=== PATIENT | female | born 1995 | race Caucasian/White ===

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

== ENCOUNTER 2017-08-27 14:02 | Emergency (ER) | payer OTHER ==
[2017-08-27 14:44] VITALS: BP 100/71
--- NOTE | 2017-08-27 15:33 | UC ---
Throat Pain/Nasal Jass HPI - History of Current Complaint Chief Complaint: UCRespiratory Stated Complaint: SINUS PAIN Time Seen by Provider: 08/27/17 15:16 Hx Obtained From: Patient Hx Last Menstrual Period: iud Onset/Duration: Gradual Onset - started last week with fatigue, body aches, fever. now has ST and facial pain/pressure. aches behid eyes, blowing out yellow mucous, also coughing Pain Intensity: 4 Cough: Nonproductive Associated Signs & Symptoms: Positive: Sinus Discomfort, Nasal Discharge - Allergies/Home Medications Allergies/Adverse Reactions: Allergies Allergy/AdvReac Type Severity Reaction Status Date / Time No Known Allergies Allergy Verified 08/27/17 14:44 PMH/Surg Hx/FS Hx/Imm Hx Previously Healthy: Yes - Surgical History Surgical History: None - Family History Known Family History: Positive: None Negative: Hypertension, Diabetes - Social History Occupation: Student Lives: With Family Alcohol Use: Occasionally Substance Use Type: None Smoking Status (MU): Never Smoked Tobacco Review of Systems Constitutional: Fever, Fatigue Skin: Negative ENT: Sore Throat, Nasal Discharge, Sinus Congestion, Sinus Pain/Tenderness Respiratory: Cough Cardiovascular: Negative Neurological: Negative Psychological: Negative All Other Systems Reviewed And Are Negative: Yes Physical Exam Triage Information Reviewed: Yes Appearance: Well-Appearing, No Pain Distress, Well-Nourished Vital Signs: Initial Vital Signs Temp 99.3 F 08/27/17 14:40 Pulse 105 08/27/17 14:40 Resp 18 08/27/17 14:40 BP 100/71 08/27/17 14:40 Pulse Ox 100 08/27/17 14:40 Vital Signs Reviewed: Yes ENT: Positive: Pharynx normal, Nasal congestion, Nasal drainage, TMs normal, Sinus tenderness Throat Pain/Nasal Course/Dx - Differential Dx/Diagnosis Differential Diagnosis/HQI/PQRI: Influenza, Pharyngitis, Sinusitis, Tonsillitis , URI Provider Diagnoses: sinusitis Discharge - Sign-Out/Discharge Documenting (check all that apply): Discharge - Discharge Plan Condition: Stable Disposition: HOME Prescriptions: Cefdinir cap (NF) [Cefdinir 300 MG cap (NF)] 300 mg PO BID #20 cap Referrals: No Primary Care Phys,NOPCP [Primary Care Provider] - Additional Instructions: drink plenty of fluids ibuprofen 600mg every 6 hours as needed for fever and pain take antibiotic as directed See Rylee if no better in 3 days - Billing Disposition and Condition Condition: STABLE Disposition: HOME
== END 2017-08-27 15:45 | disposition home or self-care (01) ==
LOC: UCEAST 14:02
DX: J32.9 Chronic sinusitis, unspecified (principal)
CPT/HCPCS: 99212; G0463

== ENCOUNTER 2018-09-23 09:12 | Emergency (ER) | payer OTHER ==
[2018-09-23 09:27] VITALS: BP 108/66
--- NOTE | 2018-09-23 10:04 | UC ---
General HPI - HPI Summary HPI Summary: Pleasant 22 yo female c/o cough, sob, fever. Sx started approx 1 month ago. Seen in [facility] 09/11/18, dx'd with bronchitis, started amoxil / prednisone, a little better. But sx recurred approx 1-2 weeks ago. Coughs hard with deep breath, feels that cough is "deep." + fever subj. No chills. + left ear fullness, mild sore throat. Appetite ok, po fluids ok. No GI issues. No issues. No p /d/w. No rash. Pt is a college student. - History of Current Complaint Chief Complaint: UCRespiratory Stated Complaint: FEVER/COUGH Time Seen by Provider: 09/23/18 10:03 Hx Obtained From: Patient Hx Last Menstrual Period: iud Pain Intensity: 7 - Allergy/Home Medications Allergies/Adverse Reactions: Allergies Allergy/AdvReac Type Severity Reaction Status Date / Time No Known Allergies Allergy Verified 09/23/18 09:26 PMH/Surg Hx/FS Hx/Imm Hx Previously Healthy: Yes - see hpi - Surgical History Surgical History: None - Family History Known Family History: Positive: None, Other - denies autoimmune fam hx Negative: Hypertension, Diabetes - Social History Alcohol Use: Occasionally Substance Use Type: None Smoking Status (MU): Never Smoked Tobacco Review of Systems All Other Systems Reviewed And Are Negative: Yes Constitutional: Positive: Other - see hpi Skin: Positive: Other - see hpi Eyes: Positive: Other - see hpi ENT: Positive: Other - see hpi Respiratory: Positive: Other - see hpi Cardiovascular: Positive: Other - see hpi Gastrointestinal: Positive: Other - see hpi Genitourinary: Positive: Other - see hpi Motor: Positive: Other - see hpi Neurovascular: Positive: Other - see hpi Musculoskeletal: Positive: Other: - see hpi Neurological: Positive: Other - see hpi Psychological: Positive: Negative Is Patient Immunocompromised?: No Physical Exam Triage Information Reviewed: Yes Appearance: Well-Appearing, Well-Nourished Vital Signs: Initial Vital Signs Temp 99.1 F 09/23/18 09:20 Pulse 105 09/23/18 09:20 Resp 18 09/23/18 09:20 BP 108/66 09/23/18 09:20 Pulse Ox 99 09/23/18 09:20 Vital Signs Reviewed: Yes Eye Exam: Normal ENT: Positive: Pharyngeal erythema, TM dull - tm dull, patel left post pharynx mild red, no sores / exudates Neck exam: Normal Neck: Positive: Supple, Other: - no adenopathy appreciated, but tender ant cervical chain right Respiratory Exam: Other - BS equal - + rhonchi bilat, + exp wheezes. low threshold for cough. No rtx. Respiratory: Positive: No respiratory distress, No accessory muscle use Cardiovascular Exam: Other - HR 100's Cardiovascular: Positive: No Murmur, Pulses Normal, Brisk Capillary Refill Abdominal Exam: Normal Abdomen Description: Positive: Nontender Bowel Sounds: Positive: Present Musculoskeletal Exam: Normal Neurological Exam: Normal Psychological Exam: Normal Skin Exam: Normal - nondiaphoretic. no visible or reported rash Course/Dx - Course Course Of Treatment: reviewed notes as available from 09/11/18. CXR - reviewed cxr and reviewed report with pt. timoteo x 1. improved, still some wheezing. influ a/b neg pertussis swab sent d/w pt coa /tx plan. Important to f/u with PCP (rylee) early this week. she should go t the ED if worse or new issues. Start macrolide. - Diagnoses Provider Diagnosis: Pneumonia, Bronchospasm Discharge - Sign-Out/Discharge Documenting (check all that apply): Patient Departure All imaging exams completed and their final reports reviewed: Yes - Discharge Plan Condition: Stable Disposition: HOME Prescriptions: Albuterol 2.5MG/3ML (0.083%)* [Ventolin 2.5 MG/3 ML NEB.HUBER*] 2.5 mg INH Q6H # 25 packet Albuterol HFA INHALER* [Ventolin HFA Inhaler*] 1 - 2 puff INH Q4H PRN #1 mdi PRN Reason: Wheezing Azithromycin TAB* [Zithromax TAB (Z-CHARITO) 250 mg #6 tabs] 500 mg PO DAILY #7 tab Benzonatate CAP* [Tessalon 100 MG CAP*] 100 mg PO TID PRN #30 cap PRN Reason: Cough predniSONE TAB* [Deltasone 10 MG TAB*] 10 mg PO DAILY #20 tab Patient Education Materials: Bacterial Pneumonia (ED), Wheezing (ED) Forms: *School Release Referrals: [facility] [Outside] No Primary Care Phys,NOPCP [Primary Care Provider] - Additional Instructions: Follow up with Rylee early this week. Please go to the Emergency Department for worse or new problems. Influenza a/b negative. Pertussis swab pending. - Billing Disposition and Condition Condition: STABLE Disposition: Home
[2018-09-23 10:37] LABS: Influenza A Molecular NEGATIVE (Negative); Influenza B Molecular NEGATIVE (Negative)
[2018-09-23] MEDS ORDERED: Albuterol/Ipratropium NEB.SOL* Albuterol 2.5 MG/Ipratropium 0.5 MG 3 ML INH ONE (10:42)
[2018-09-26 18:51] LABS: Bordetella pertussis PCR Negative
== END 2018-09-23 12:07 | disposition home or self-care (01) ==
LOC: UCEAST 09:12
DX: J18.9 Pneumonia, unspecified organism (principal); J98.01 Acute bronchospasm
CPT/HCPCS: 71046; 87798; 99212; A9270-GY; G0463

== ENCOUNTER 2019-02-02 19:25 | Emergency (ER) | payer OTHER ==
[2019-02-02 19:37] VITALS: BP 110/73
--- NOTE | 2019-02-02 20:22 | UC ---
Throat Pain/Nasal Jass HPI - HPI Summary HPI Summary: 23 y/o female presents to the urgent care c/o sore throat, sinus congestion and yellowish nasal discharge for the past week. Pt reports symptoms worsen yesterday when she developed fever and RT ear pain last night. Pt has been taken Ibuprofen PO and Mucinex PO to alleviate symptoms w/o any improvement. Pain w/ swallowing is 6/10. She noticed this morning her tonsils are enlarge w / mild exudate. Last Ibuprofen taken was this morning. Pt denies SOB, NORRIS, dizziness, chest pain, abdominal pain, N/V/D. - History of Current Complaint Chief Complaint: UCGeneralIllness Stated Complaint: COLD SYMPTOMS Time Seen by Provider: 02/02/19 20:19 Hx Obtained From: Patient Hx Last Menstrual Period: iud Onset/Duration: Gradual Onset, Lasting Weeks - 1 week, Still Present, Worse Since - sinus pain, fever and RT ear pain Severity: Moderate Pain Intensity: 6 - sore throat and ear pain Cough: Nonproductive Associated Signs & Symptoms: Positive: Sinus Discomfort, Nasal Discharge - yellowish, Fever, Other - Rt ear pain. Negative: Dysphagia, Wheezing - Epiglottits Risk Factors Epiglottis Risk Factors: Negative - Allergies/Home Medications Allergies/Adverse Reactions: Allergies Allergy/AdvReac Type Severity Reaction Status Date / Time No Known Allergies Allergy Verified 02/02/19 19:37 PMH/Surg Hx/FS Hx/Imm Hx Previously Healthy: Yes - Pt denies PMHX - Surgical History Surgical History: None - Family History Known Family History: Positive: None - Pt denies FMHX, Other - denies autoimmune fam hx Negative: Hypertension, Diabetes - Social History Occupation: Student Lives: With Family Alcohol Use: Weekly Substance Use Type: None Smoking Status (MU): Current Some Day Smoker Type: eCigarettes - Immunization History Vaccination Up to Date: Yes Review of Systems All Other Systems Reviewed And Are Negative: Yes Constitutional: Positive: Fever, Chills Skin: Positive: Negative Eyes: Positive: Negative ENT: Positive: Sore Throat, Ear Ache - RT ear pain, Nasal Discharge - yellowish , Sinus Congestion, Sinus Pain/Tenderness, Other - moderate PND Respiratory: Positive: Cough - dry Cardiovascular: Positive: Negative Gastrointestinal: Positive: Negative Genitourinary: Positive: Negative Motor: Positive: Negative Neurovascular: Positive: Negative Musculoskeletal: Positive: Negative Neurological: Positive: Negative Psychological: Positive: Negative Is Patient Immunocompromised?: No Physical Exam - Summary Physical Exam Summary: VITAL SIGNS: Reviewed. GENERAL: Patient is a well developed and nourished female who is sitting comfortable in the examining table. Patient is not in any acute respiratory distress. HEAD AND FACE: No signs of trauma. No ecchymosis, hematomas or skull depressions. B/l frontal and maxillary sinus tenderness on percussion. EYES: PERRLA, EOMI x 2, No injected conjunctiva, no nystagmus. No photophobia. EARS: Hearing grossly intact. B/L Ear canals clear and RT TM injected w/ erythema and no light reflex or perforation. LF TM WNL. MOUTH: Positive pharynx with erythema, exudates, palatal petechiae. B/L tonsillar enlargement with exudate. Uvula in midline. NECK: Supple, trachea is midline, Positive anterior cervical lymphadenopathy, no JVD, no carotid bruit, no c-spine tenderness, neck with full ROM. No meningeal signs, no Kernig's or brudzinskis signs. CHEST: Symmetric, no tenderness at palpation LUNGS: Clear to auscultation bilaterally. No wheezing or crackles. CVS: Regular rate and rhythm, S1 and S2 present, no murmurs or gallops appreciated. ABDOMEN: Soft, non-tender. No signs of distention. No rebound no guarding, and no masses palpated. Bowel sounds are normal. EXTREMITIES: FROM in all major joints, no edema, no cyanosis or clubbing. NEURO: Alert and oriented x 3. No acute neurological deficits. Speech is normal and follows commands. SKIN: Dry and warm Triage Information Reviewed: Yes Vital Signs: Initial Vital Signs Temp 99.3 F 02/02/19 19:33 Pulse 113 02/02/19 19:33 Resp 18 02/02/19 19:33 BP 110/73 02/02/19 19:33 Pulse Ox 97 02/02/19 19:33 Throat Pain/Nasal Course/Dx - Course Course Of Treatment: 23 y/o female presents to the urgent care c/o sore throat, sinus congestion and yellowish nasal discharge for the past week. Pt reports symptoms worsen yesterday when she developed fever and RT ear pain last night. Pt has been taken Ibuprofen PO and Mucinex PO to alleviate symptoms w/o any improvement. Pain w/ swallowing is 6/10. She noticed this morning her tonsils are enlarge w / mild exudate. Last Ibuprofen taken was this morning. Pt denies SOB, NORRIS, dizziness, chest pain, abdominal pain, N/V/D. Hx obtained. Hx obtained. Pt w; RT otitis media, sinusitis and pharyngitis on examination. Rapid strep ordered: negative. Pt with 1 weeks of symptoms getting worse. Pt Rx Amoxicillin PO and flonase nasal spray. first dose given at the clinic tonight by nirse. pt tolerated well medications and felt better. Discharge instructions explained to Pt. Advised to Return to the clinic or PCP if symptoms do not improve.Pt understood and agreed with plan of care. - Differential Dx/Diagnosis Differential Diagnosis/HQI/PQRI: Laryngitis, Mononucleosis, Otitis Media, Peritonsillar Abscess, Pharyngitis, Sinusitis, Tonsillitis, URI Provider Diagnosis: Right acute otitis media, Acute bacterial sinusitis Discharge ED - Sign-Out/Discharge Documenting (check all that apply): Patient Departure - d/c home All imaging exams completed and their final reports reviewed: No Studies - Discharge Plan Condition: Stable Disposition: HOME Prescriptions: Amoxicillin PO (*) [Amoxicillin 875 MG (*)] 875 mg PO BID #19 tab Fluticasone NASAL SPRAY 50MCG* [Flonase NASAL SPRAY 50MCG*] 2 spray BOTH NARES DAILY #1 btl Patient Education Materials: Sinusitis (ED), Ear Infection (ED) Referrals: [facility] [Outside] - 3 Days Additional Instructions: 1- Please take the full course of the antibiotic to avoid resistance.Take yogurts w/ probiotics or Culturelle to protect your GI system 2-2-Use Flonase as directed to help drain fluid. Also buy saline drops to clear sinuses 2-Please take ibuprofen PO q6-8hrs prn as instructed after meals to alleviate pain and swelling. Increase fluid intake, eat well, rest and avoid strenuous exercise 3-If symptoms do not improve or worsen please return to the urgent care or f/u with your PCP in 3 days for further evaluation and treatment. - Billing Disposition and Condition Condition: STABLE Disposition: Home - Attestation Statements Provider Attestation: Per institutional requirements, I have reviewed the chart, however, I was not consulted specifically or made aware of this patient by the midlevel provider. I did not personally evaluate, interact with , or disposition this patient.
[2019-02-02] MEDS ORDERED: Ibuprofen TAB* 400 MG PO ONE (20:32)
[2019-02-02] MEDS ORDERED: Amoxicillin PO (*) 500 MG CAP PO ONE (20:44)
== END 2019-02-02 20:54 | disposition home or self-care (01) ==
LOC: UCEAST 19:25
DX: J32.9 Chronic sinusitis, unspecified (principal); H66.91 Otitis media, unspecified, right ear; F17.210 Nicotine dependence, cigarettes, uncomplicated
CPT/HCPCS: 87651; 99212; A9270-GY; G0463